=== PATIENT | male | born 1955 | race Caucasian/White ===

== ENCOUNTER 2016-08-05 13:42 | Day surgery (SDC) | payer BC ==
[~2016-08-05 13:42] MED LIST: CIPROFLOXACIN HCL 500 MG TABLET PO PRN
[2016-08-05] MEDS ORDERED: LIDOCAINE HCL 10 APPL CARTRIDGE TP ONE (14:30)
[2016-08-05 15:13] VITALS: BP 145/88
== END 2016-08-05 13:43 | disposition home or self-care (01) ==
LOC: AMB 13:42
PROVIDERS: ATTEND Urology
PROC: 0TJB8ZZ Inspection of Bladder, Via Natural or Artificial Opening Endoscopic (ICD-10-PCS; principal; 2016-08-05 15:15)
DX: N40.1 Benign prostatic hyperplasia with lower urinary tract symptoms (principal); N13.8 Other obstructive and reflux uropathy; I10 Essential (primary) hypertension; E66.01 Morbid (severe) obesity due to excess calories; Z68.41 Body mass index [BMI] 40.0-44.9, adult; Z87.891 Personal history of nicotine dependence